=== PATIENT | female | born 1970 | race Hispanic/Latino ===

== ENCOUNTER 2024-02-06 09:30 | Outpatient (CLI) | payer BC | END 2024-02-06 09:31 | disposition home or self-care (01) | LOC: CSHCP 09:30 | PROVIDERS: ATTEND Internal Medicine Critical Care Medicine | DX: I27.82 Chronic pulmonary embolism (principal); J44.9 Chronic obstructive pulmonary disease, unspecified | CPT/HCPCS: 94010; 94726; 94729; 94760 ==